=== PATIENT | female | born 1975 | race Caucasian/White ===

== ENCOUNTER 2018-04-13 02:46 | Observation (INO) | payer OTHER ==
[2018-04-13] MEDS ORDERED: Enoxaparin(*) 80 MG/0.8 ML SYR SUBCUT ONE (03:11)
[2018-04-13 04:03] LABS: ABS Basophils 0.1 10^3/ul (0-0.2); ABS Eosinophils 0.1 10^3/ul (0-0.6); ABS Lymphocytes 1.6 10^3/ul (1.0-4.8); ABS Monocytes 0.6 10^3/ul (0-0.8); ABS Neutrophils 7.1 10^3/ul (1.5-7.7); ABS Nucleated RBC 0 10^3/ul; Hematocrit 29 % (35-47); Hemoglobin 9.5 g/dl (12.0-16.0); Lymphocyte % 17.2 % (25-47); Mean Corpuscular HGB Conc 34 g/dl (31-36); Mean Corpuscular Hemoglobin 26 pg (27-31); Mean Corpuscular Volume 76 fL (80-97); Mean Platelet Volume 7.4 um3 (7.4-10.4); Nucleated Red Blood Cells % 0; Platelet Count 197 10^3/ul (150-450); Red Blood Count 3.74 10^6/ul (4.0-5.4); Red Cell Distribution Width 15 % (10.5-15); White Blood Count 9.5 10^3/ul (3.5-10.8)
[2018-04-13 04:19] LABS: EGFR Non-African American 111.2 (>60)
--- NOTE | 2018-04-13 04:19 | ED ---
Les Chiu Tariq, scribed for Sinan Sosa MD on 04/13/18 at 0317 . Lower Extremity - HPI Summary HPI Summary: Pt is a 43 y/o F BIBA from [facility] who presents to ED due to LLE DVT. Pt reports that [facility] found 2 DVTs with blood flow around them and transferred her to [facility] for further care. States that symptoms began as a sore on the left inner thigh since Wednesday (5 days ago). Denies any pain at this time. Negative PMHx DVT or PE. Pt is 20 weeks - A0. - History of Current Complaint Chief Complaint: EDExtremityLower Stated Complaint: DVT-TRANSFER FROM [facility] Time Seen by Provider: 04/13/18 02:56 Hx Obtained From: Patient Onset/Duration: Days - 5 days Severity Currently: None Pain Intensity: 0 Pain Scale Used: 0-10 Numeric Timing: Lasting Days Aggravating Factor(s): Nothing Alleviating Factor(s): Nothing - Allergies/Home Medications Allergies/Adverse Reactions: Allergies Allergy/AdvReac Type Severity Reaction Status Date / Time ciprofloxacin Allergy Rash And Verified 04/13/18 02:56 Itching Penicillins Allergy Rash And Verified 04/13/18 02:56 Itching Quinolones Allergy Rash And Verified 04/13/18 02:56 Itching Home Medications: Home Medications Calcium Carbonate [Super Calcium] 600 mg PO DAILY 04/13/18 [History Confirmed ] Dextromethorphan Polistirex [Cough Dm ER] 30 mg PO Q4HR PRN 04/13/18 [History Confirmed 04/13/18] Pnv No.95/Ferrous Fum/Folic AC [ Vitamin & Minera 28-0.8 mg] 1 tab PO DAILY 04/13/18 [History Confirmed 04/13/18] PMH/Surg Hx/FS Hx/Imm Hx Endocrine/Hematology History: Reports: Hx Diabetes Cardiovascular History: Reports: Hx Coronary Artery Disease Denies: Hx Deep Vein Thrombosis Respiratory History: Denies: Hx Pulmonary Embolism - Cancer History Hx Chemotherapy: Yes Hx Radiation Therapy: Yes - Surgical History Surgery Procedure, Year, and Place: 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, TONSILECTOMY,RECTAL POLIPS,3 , RECONSTRUCTION SURGERY BREAST Infectious Disease History: No Infectious Disease History: Denies: Traveled Outside the [place] in Last 30 Days - Family History Known Family History: Negative: Cardiac Disease, Diabetes - Social History Alcohol Use: None Substance Use Type: Reports: None Smoking Status (MU): Never Smoked Tobacco Review of Systems Positive: Other - 2 LLE DVTs Positive: Other - NEGATIVE: associated pain Positive: Other - Sore on the left inner thigh All Other Systems Reviewed And Are Negative: Yes Physical Exam - Summary Physical Exam Summary: VITAL SIGNS: Reviewed. GENERAL: Patient is a well-developed and nourished female who is lying comfortable in the stretcher. Patient is not in any acute respiratory distress. HEAD AND FACE: No signs of trauma. No ecchymosis, hematomas or skull depressions. No sinus tenderness. EYES: PERRLA, EOMI x 2, No injected conjunctiva, no nystagmus. EARS: Hearing grossly intact. Ear canals and tympanic membranes are within normal limits. MOUTH: Oropharynx within normal limits. NECK: Supple, trachea is midline, no adenopathy, no JVD, no carotid bruit, no c- spine tenderness, neck with full ROM. CHEST: Symmetric, no tenderness at palpation LUNGS: Clear to auscultation bilaterally. No wheezing or crackles. CVS: Regular rate and rhythm, S1 and S2 present, no murmurs or gallops appreciated. ABDOMEN: Soft, non-tender. No signs of distention. No rebound no guarding, and no masses palpated. Bowel sounds are normal. EXTREMITIES: FROM in all major joints, no edema, no cyanosis or clubbing. NEURO: Alert and oriented x 3. No acute neurological deficits. Speech is normal and follows commands. SKIN: Dry and warm. Small mild red area over the inner aspect of the left thigh , non-tender. Triage Information Reviewed: Yes Vital Signs On Initial Exam: Initial Vitals Pulse Resp BP Pulse Ox 85 29 152/96 96 04/13/18 02:51 04/13/18 02:51 04/13/18 02:51 04/13/18 02:51 Vital Signs Reviewed: Yes Diagnostics - Vital Signs Vital Signs Temp Pulse Resp BP Pulse Ox 04/13/18 03:00 84 29 97 04/13/18 02:54 98.4 F 96 18 172/99 98 04/13/18 02:51 85 29 152/96 96 - Laboratory Lab Statement: Any lab studies that have been ordered have been reviewed, and results considered in the medical decision making process. Lower Extremity Course/Dx - Course Assessment/Plan: A 43 year old, 20-week , female BIBA from [facility] presents to the ED due to 2 LLE DVTs that began sores on the left inner thigh 5 days ago without pain. Blood work was done. In the ED course, patient received Lovenox. We discussed patient care with Dr. Richie Enriquez and they recommended that the pt be accepted to medicine. Additionally, we discussed patient care with Dr. Crenshaw who accepts patient for admission. Patient will be admitted with a Dx of and DVT. She understands and agrees. - Diagnoses Provider Diagnoses: , DVT (deep venous thrombosis) - Physician Notifications Discussed Care Of Patient With: Richie Enriquez Time Discussed With Above Provider: 03:25 Instructed by Provider To: Other - Patient should be admitted to medicine. Discussed patient care with Dr. Crenshaw at 0329. Accepting the pt for admission. Discharge - Sign-Out/Discharge Documenting (check all that apply): Discharge/Admit/Transfer - Admit - Discharge Plan Condition: Stable Disposition: ADMITTED TO [facility] Referrals: Karen Cabrera CLINICAL PHARMACY COORDINATOR [Primary Care Provider] - The documentation as recorded by the Les lizama Tariq accurately reflects the service I personally performed and the decisions made by , Sinan Sosa MD.
[2018-04-13 04:21] LABS: INR 0.91 (0.77-1.02)
[2018-04-13] MEDS ORDERED: GuaiFENesin DM* 5 ML UDC PO PRN (04:48)
--- NOTE | 2018-04-13 09:51 | PN ---
Hospitalist Progress Note Date of Service: 04/13/18 Pt seen and evaluated. left non-occlusive DVT (common femoral and greater saphenous vein) in 44 yo female PMH breast cancer (in remission), maternal DVT hx, who is 20 weeks . Started on lovenox 1mg/kg q12 with Anti-XA level 4 hours after 3rd dose for titration to 0.6-1.0. Transfer to [address] [place] [address]. Await Ob- gyn physician recs. Will get EKG. Hemodynamically stable.
--- NOTE | 2018-04-13 12:04 | HP ---
ADMITTING HISTORY AND PHYSICAL: DATE OF ADMISSION: 04/13/18 CHIEF COMPLAINT: Left lower extremity redness and tenderness. HISTORY OF PRESENT ILLNESS/HOSPITAL COURSE: The patient is a 43-year-old lady with history of breast cancer at the age of 27, unknown stage, but likely stage I to II, status post lumpectomy with chemoradiotherapy and was placed on tamoxifen now, currently on remission, mentions that she is 20 weeks and had recently been seen by her OB back on Wednesday and mentioned that everything was "okay." However, the following day on Wednesday, her left lower extremity more specifically in the medial portion of her thighs, she felt that they became tender in addition to being painful and the tenderness usually exacerbates when she stands up a few hours prior to admission, then she began seen the red streaks on the medial thigh that appeared a little bit more prominent and more tender then its initial appearance. Given above, she presented to [facility] for appropriate diagnostic management and she was found to have DVT on the aforementioned extremity. I was initially called by Ms. Saranya Gale regarding the admission above and I have requested that she contact the OB therapist radiation directly given she is [address] Enriquez who is therapist radiation upon being informed by Ms. Gale suggested that she be transferred to [facility] for further evaluation and at which point, Dr. Lewis then touch based with Dr. Enriquez who has agreed with Lovenox as her anticoagulation. PAST MEDICAL/SURGICAL HISTORY: Breast cancer at the age of 27, status post chemoradiotherapy as well as tamoxifen therapy, currently on remission. No other history claimed by patient. Denies any previous history of hypertension, diabetes, etc. MEDICATIONS: Her current home medications are: 1. Escitalopram 10 mg p.o. daily. 2. Bupropion SR 1 tab p.o. daily. 3. Omeprazole 20 mg p.o. daily. ALLERGIES: To CIPROFLOXACIN, PENICILLIN, and QUINOLONES. FAMILY HISTORY: Her mother had multiple myeloma as well as DVT. Her father had hypercholesterolemia. SOCIAL HISTORY: She denied any previous history of smoking, illicit drug use, nor alcohol abuse. She is , currently with her 4th child and mentions that all her other 3 children are otherwise healthy. REVIEW OF SYSTEMS: The patient denied any recent headaches, dizziness, fevers, chills, nausea, vomiting, chest pain, shortness of breath, as mentioned she has had cough for one month, but this has not exacerbated nor improved since. Denies any abdominal pain, diarrhea, constipation, throat pain or new skin lesions. The rest of the 14-point review of systems were otherwise unremarkable. PHYSICAL EXAMINATION GENERAL APPEARANCE: The patient is awake, alert, and oriented x3, not in acute distress. VITAL SIGNS: Reveals the most recent vitals signs of records with blood pressure of 166/98 from previous of 142/85 and 135/84 previously. Heart rate of 94 beats per minute, respiratory rate of 33 from previous of 16 and 26, saturating at 97% on room air. HEENT: Normocephalic, atraumatic. PERRLA. Extraocular muscles intact. Negative for icterus. Moist oral mucosa. Negative throat erythema. NECK: Soft, supple with no cervical lymphadenopathy, no JVD. CHEST: Clear to auscultation bilaterally. Good air entry. No wheezes, rales, or rhonchi. HEART: S1, S2 within normal limits. Regular rate and rhythm. No murmurs, rubs , or gallops. ABDOMEN: Soft, slightly distended due to 20-week . I could not appreciate heart sounds myself and given the positioning of the fetus, but will defer with OB evaluation on consultation. Normoactive bowel sounds x4 quadrants. EXTREMITIES: No cyanosis, clubbing, or edema. PSYCHIATRIC: No active psychosis, depression, suicidal or homicidal ideations. SKIN: Warm to touch. DIAGNOSTIC STUDIES AND LABORATORY DATA: Laboratories and imaging from [place] has been reviewed. ASSESSMENT AND PLAN: As follows: 1. Deep vein thrombosis. Likely due to the fact that patient is , which makes her hypercoagulable. However, given her family history of deep vein thrombosis, more specifically with her mother, I believe that it is prudent at least rule out some hypercoagulable disorders that may not be affected by low molecular weight heparin. I will send out factor V Leiden, prothrombin gene mutation as well as protein C and S activity. I will defer with her primary care physician if they believe that sending out antiphospholipid antibody would be helpful as this is not part of our current CPOE regimen, although this can be part of her hypercoagulable workup, and as mentioned we will defer. We will place patient on 70 mg subcu of Lovenox q.12 and we will recheck anti-Xa level 4 hours after her third Lovenox dose and we will defer with OB in further titrating her anti-Xa level goal, which should be around 0.621 IU/mL and we will defer. 2. Cough. Previously diagnosed by PCP as an upper respiratory tract infection that this likely viral. Unclear whether this may be due to pulmonary embolus given known DVT, however, given there will be no change in management to further rule out PE along with the danger to her fetus, I will not elect to further study PE any further at this time given patient will be fully anticoagulated regardless. 3. Twenty weeks : Dr. Enriquez has been informed by both ER PA as well as our ER physician and we will place an official consult and we will await for any future input. Dr. Boogie advised Lovenox be given. Will defer with any further input upon evaluation. 4. DVT prophylaxis. The patient will be on full dose Lovenox as described. 5. Disposition as above. [id number]/[facility] #: [id number] [facility]
[2018-04-13] MEDS: Enoxaparin(*) 80 MG/0.8 ML SYR SUBCUT SCH (15:32)
[2018-04-13] MEDS: [UNRECOGNIZED DRUG - REMARK] PO SCH (15:36)
[2018-04-14] MEDS: Enoxaparin(*) 80 MG/0.8 ML SYR SUBCUT SCH (02:51)
[2018-04-14 07:12] LABS: Hematocrit 27 % (35-47); Hemoglobin 8.9 g/dl (12.0-16.0); Mean Corpuscular HGB Conc 33 g/dl (31-36); Mean Corpuscular Hemoglobin 25 pg (27-31); Mean Corpuscular Volume 76 fL (80-97); Mean Platelet Volume 7.2 um3 (7.4-10.4); Platelet Count 175 10^3/ul (150-450); Red Blood Count 3.51 10^6/ul (4.0-5.4); Red Cell Distribution Width 15 % (10.5-15); White Blood Count 7.2 10^3/ul (3.5-10.8)
[2018-04-14 07:21] VITALS: BP 130/78
[2018-04-14 07:37] LABS: EGFR Non-African American 109.1 (>60)
[2018-04-14] MEDS: [UNRECOGNIZED DRUG - REMARK] PO SCH (08:21)
[2018-04-15 18:25] LABS: Prothrombin 20210 Mutation Negative (Negative)
--- NOTE | 2018-04-15 21:35 | DS ---
DISCHARGE SUMMARY: DATE OF ADMISSION: 04/13/18 DATE OF DISCHARGE: 04/14/18 ADMITTING PROVIDER: Wong Crenshaw MD ATTENDING PHYSICIAN ON DISCHARGE: Colby Armijo MD PRIMARY CARE PHYSICIAN: Dr. Figueroa. CHIEF COMPLAINT: Left lower extremity tenderness and redness. PRINCIPAL DIAGNOSES: 1. Nonocclusive left lower extremity DVT. 2. 20 weeks . HISTORY OF PRESENT ILLNESS AND HOSPITAL COURSE: Tanja Woody is a 43-year-old female, past medical history of breast cancer at age 27, status post lumpectomy and chemotherapy and tamoxifen, currently in remission, who is 20 weeks . Four days prior to admission, she developed some tenderness to the medial portion of her left thigh, then progressive development of red streaks a few hours prior to admission. She presented to the [facility], was found to have nonocclusive DVT of the left lower extremity and was transferred to [facility]. Dr. Enriquez of [employer] was consulted via phone by the [facility] nursing staff as well. The patient was initially placed in the ICU, was started on Lovenox. She got 3 doses of 1 mg/kg Lovenox before anti-Xa level 4 hours after the third dose was obtained; however, this was a send-out lab and results are not available yet. The patient was hemodynamically stable throughout the admission. No tachycardia, hypoxia, or chest pain. She had reassuring heart tones on hospital day #2. Case was discussed with Dr. Beena Nova of Hematology/Oncology informally and the patient was considered safe for discharge with outpatient followup with Dr. Nova and her primary care provider. After discussions with Dr. Nova, who said she often uses once daily dose of Lovenox in this population, decision was made to use this 1.5 mg/kg at once daily dosing, starting day after discharge. The patient will follow up with Dr. Figueroa on 04/20/18 at [address] Beena Nova to be arranged. DISCHARGE MEDICATIONS: Include: 1. Lovenox 110 mg subcutaneous every 24 hours (new). 2. vitamins 1 tab p.o. daily. 3. Dextromethorphan cough suspension 30 mg p.o. q.4 hours p.r.n. 4. Calcium carbonate 600 mg p.o. daily. ACTIVITY LEVEL: No restrictions. DIET: No restrictions other than avoidance of alcohol and other obvious guidelines. TIME SPENT: On discharge, 35 minutes. [id number]/[facility] #: [id number] [facility]
== END 2018-04-14 11:30 | disposition home or self-care (01) ==
LOC: ED 02:46 → ICU 04:43 → INTOOBSV 04:43 → MED 10:44 → OBSVTOIN 04-14 09:00 → INTOOBSV 04-14 09:00
PROVIDERS: ADMIT Student in an Organized Health Care Education/Training Program; ATTEND Internal Medicine
DX: O22.32 Deep phlebothrombosis in pregnancy, second trimester (principal); Z3A.20 20 weeks gestation of pregnancy; Z85.3 Personal history of malignant neoplasm of breast; R05 Cough
CPT/HCPCS: 36415; 80048; 80053; 81240; 81241; 83735; 85025; 85027; 85303; 85306; 85520; 85610; 85730; 87641; 93005; 99285; A9270-GY; G0378; J1650

== ENCOUNTER 2018-08-22 07:45 | Inpatient (IN) | payer OTHER ==
[2018-08-24] MEDS ORDERED: Buffered Lidocaine 0.9% SYRIN* 5 ML/SYR SYRINGE ONE (07:29)
[2018-08-24] MEDS ORDERED: ceFOXitin 2 GM IVPREMIX* 2 GM/50 ML BAG IVPB ONE (07:43)
[2018-08-24] MEDS ORDERED: Sodium Citrate/Citric Acid* 15 ML UDC PO ONE (07:43)
[2018-08-24] MEDS ORDERED: Morphine PF AMP (0.5MG/ML)* 5 MG/10 ML AMP ONE (07:50)
[2018-08-24] MEDS ORDERED: Sodium Citrate/Citric Acid* 15 ML UDC ONE (07:50)
[2018-08-24] MEDS ORDERED: ceFOXitin 2 GM IVPREMIX* 2 GM/50 ML BAG ONE (07:52)
[2018-08-24] MEDS ORDERED: Phenylephrine INJ* 10 MG/ML 1 ML VIAL (10 MG) ONE (08:34)
[2018-08-24] MEDS ORDERED: EPHEDrine (Pressors)* 50 MG/ML VIAL ONE (09:23)
[2018-08-24] MEDS ORDERED: OXYTOCIN* 10 UNITS/ML 1 ML VIAL ONE (09:23)
[2018-08-24] MEDS ORDERED: DiMENhydriNATE IV* 50 MG/ML VIAL IV PUSH PRN (09:28)
[2018-08-24] MEDS ORDERED: Naloxone* 0.4 MG/ML 1 ML VIAL IV PRN ×2 (09:28→09:29)
[2018-08-24] MEDS ORDERED: diPHENhydraMINE IV* 50 MG/ML 1 ml VIAL (BENADRYL) IV PRN (09:29)
[2018-08-24] MEDS ORDERED: Ondansetron INJ* 2 MG/ML VIAL IV PRN (09:29)
[2018-08-24] MEDS ORDERED: Nalbuphine* 10 MG/ML 1 ML VIAL IV PRN (09:29)
[2018-08-24] MEDS ORDERED: Heparin VIAL(*) 5000 UNITS/ML VIAL (FIVE THOUSAND) ONE (09:37)
[2018-08-24] MEDS ORDERED: Zolpidem TAB* 5 MG PO PRN (09:48)
[2018-08-24] MEDS ORDERED: Witch Hazel PAD* JAR TOPICAL PRN (09:48)
[2018-08-24] MEDS ORDERED: oxyCODONE/Acetamin 5/325 MG* TAB PO PRN (09:48)
[2018-08-24] MEDS ORDERED: Glycerin ADULT SUPP PR PRN (09:48)
[2018-08-24] MEDS ORDERED: Dibucaine 1% 28.35 GM TUBE PR PRN (09:48)
[2018-08-24] MEDS ORDERED: Acetaminophen TAB* 325 MG PO PRN (09:48)
[2018-08-24] MEDS ORDERED: Oxytocin in LR* 20 UNITS/1,000 ML BAG IVPB SCH (10:00)
[2018-08-24] MEDS: Docusate CAP* 100 MG PO SCH ×2 (12:37→21:46)
[2018-08-24] MEDS: Simethicone TAB* 80 MG TAB.CHEW PO SCH ×3 (12:37→21:46)
[2018-08-24] MEDS: Ibuprofen TAB* 600 MG PO PRN ×2 (12:37→18:12)
[2018-08-24] MEDS: Heparin VIAL(*) 5000 UNITS/ML VIAL (FIVE THOUSAND) SUBCUT SCH ×2 (12:48→21:46)
[2018-08-25] MEDS: Ibuprofen TAB* 600 MG PO PRN ×4 (00:56→21:08)
[2018-08-25 07:33] LABS: ABS Basophils 0.1 10^3/ul (0-0.2); ABS Eosinophils 0 10^3/ul (0-0.6); ABS Lymphocytes 1.3 10^3/ul (1.0-4.8); ABS Monocytes 0.6 10^3/ul (0-0.8); ABS Neutrophils 8.1 10^3/ul (1.5-7.7); ABS Nucleated RBC 0 10^3/ul; Eosinophil % 0.2 % (0-6); Hematocrit 26 % (35-47); Hemoglobin 8.7 g/dl (12.0-16.0); Lymphocyte % 12.6 % (25-47); Mean Corpuscular HGB Conc 33 g/dl (31-36); Mean Corpuscular Hemoglobin 25 pg (27-31); Mean Corpuscular Volume 75 fL (80-97); Mean Platelet Volume 7.8 um3 (7.4-10.4); Nucleated Red Blood Cells % 0; Platelet Count 149 10^3/ul (150-450); Red Blood Count 3.49 10^6/ul (4.00-5.40); Red Cell Distribution Width 18 % (10.5-15); White Blood Count 10.1 10^3/ul (3.5-10.8)
[2018-08-25] MEDS: Simethicone TAB* 80 MG TAB.CHEW PO SCH ×4 (08:38→21:05)
[2018-08-25] MEDS: Docusate CAP* 100 MG PO SCH ×3 (08:38→21:05)
[2018-08-25] MEDS: Ferrous Gluconate TAB* 324 MG TAB PO SCH ×2 (08:38→21:05)
[2018-08-25] MEDS: Heparin VIAL(*) 5000 UNITS/ML VIAL (FIVE THOUSAND) SUBCUT SCH (10:37)
[2018-08-25] MEDS: oxyCODONE/Acetamin 5/325 MG* TAB PO PRN ×2 (12:40→21:03)
[2018-08-25] MEDS ORDERED: Enoxaparin(*) 150 MG/ML 1 ML SYRINGE SUBCUT SCH (18:00)
[2018-08-25] MEDS ORDERED: Enoxaparin(*) 100 MG/ML SYR SUBCUT SCH (21:00)
[2018-08-25] MEDS: Enoxaparin(*) 150 MG/ML 1 ML SYRINGE SUBCUT SCH (21:06)
[2018-08-26] MEDS: oxyCODONE/Acetamin 5/325 MG* TAB PO PRN ×6 (01:06→23:38)
[2018-08-26] MEDS: Ibuprofen TAB* 600 MG PO PRN ×4 (03:50→23:38)
[2018-08-26] MEDS: Simethicone TAB* 80 MG TAB.CHEW PO SCH ×4 (09:18→20:05)
[2018-08-26] MEDS: Ferrous Gluconate TAB* 324 MG TAB PO SCH ×2 (09:18→20:05)
[2018-08-26] MEDS: Docusate CAP* 100 MG PO SCH ×3 (09:18→20:05)
[2018-08-26 10:46] LABS: Hematocrit 27 % (35-47); Hemoglobin 8.6 g/dl (12.0-16.0); Mean Corpuscular HGB Conc 32 g/dl (31-36); Mean Corpuscular Hemoglobin 24 pg (27-31); Mean Corpuscular Volume 75 fL (80-97); Mean Platelet Volume 7.6 um3 (7.4-10.4); Platelet Count 187 10^3/ul (150-450); Red Cell Distribution Width 18 % (10.5-15); White Blood Count 12.8 10^3/ul (3.5-10.8)
[2018-08-26 11:04] LABS: EGFR Non-African American 71.1 (>60)
[2018-08-26] MEDS: Labetalol TAB* 100 MG PO SCH (15:03)
[2018-08-26] MEDS ORDERED: Measles, Mumps,Rubella VACC* 0.5 ML/VIAL SUBCUT ONE (17:42)
[2018-08-26] MEDS ORDERED: NIFEdipine CAP* 10 MG PO ONE (17:42)
[2018-08-26] MEDS: NIFEdipine CAP* 10 MG PO ONE ×2 (19:17→20:49)
[2018-08-26] MEDS: Enoxaparin(*) 150 MG/ML 1 ML SYRINGE SUBCUT SCH (20:03)
[2018-08-27] MEDS: oxyCODONE/Acetamin 5/325 MG* TAB PO PRN ×4 (03:53→20:51)
[2018-08-27] MEDS: Ibuprofen TAB* 600 MG PO PRN ×2 (05:45→11:24)
[2018-08-27] MEDS: Labetalol TAB* 100 MG PO SCH ×3 (08:49→19:49)
[2018-08-27] MEDS: Ferrous Gluconate TAB* 324 MG TAB PO SCH ×2 (08:49→20:51)
[2018-08-27] MEDS: Simethicone TAB* 80 MG TAB.CHEW PO SCH ×4 (08:49→20:50)
[2018-08-27] MEDS: Docusate CAP* 100 MG PO SCH ×3 (08:49→20:50)
[2018-08-27] MEDS: Enoxaparin(*) 150 MG/ML 1 ML SYRINGE SUBCUT SCH (20:53)
[2018-08-27] MEDS ORDERED: Labetalol TAB* 100 MG PO ONE (21:00)
[2018-08-28] MEDS: oxyCODONE/Acetamin 5/325 MG* TAB PO PRN ×7 (01:32→21:42)
[2018-08-28] MEDS ORDERED: Labetalol TAB* 200 MG PO SCH (09:00)
[2018-08-28] MEDS: Simethicone TAB* 80 MG TAB.CHEW PO SCH ×4 (09:01→20:53)
[2018-08-28] MEDS: Docusate CAP* 100 MG PO SCH ×3 (09:01→20:53)
[2018-08-28] MEDS: Ferrous Gluconate TAB* 324 MG TAB PO SCH ×2 (09:01→20:53)
--- NOTE | 2018-08-28 09:19 | PN ---
Progress Note - Progress Note Date of Service: 08/28/18 SOAP: Subjective: [Patient is a 43 y/o post repeat section on 08/24/18. Her care has been complicated by Hypertension with systolic readings in 170's and diastolic readings in 100's. She was started on Labetolol 100mg BID and I have increased her dose to 200mg BID. Her last BP at 1945 yesterday systolic was 170 's since then Her BP have ranged in 150-160's systolic to 80-90's diastolic on 200mg labetolol BID. the patient denies chest pain, shortness of breath, N/V/D , no visual changes or headaches.] Objective: Vital Signs - 12 hr Temp Pulse Resp BP Pulse Ox 08/28/18 08:34 99.2 F 80 18 151/76 98 08/28/18 05:43 16 08/28/18 04:18 17 08/28/18 04:17 17 08/28/18 04:13 152/86 08/28/18 04:01 98.5 F 86 20 159/94 98 08/28/18 01:50 18 08/28/18 01:49 16 08/28/18 01:32 17 08/27/18 23:54 98.3 F 91 17 162/89 08/27/18 21:08 76 166/87 Laboratory Tests 08/24/18 08/25/18 08/26/18 08:02 07:24 10:36 WBC 10.1 12.8 H RBC 3.49 L 3.60 L Hgb 8.7 L 8.6 L Hct 26 L 27 L MCV 75 L 75 L MCH 25 L 24 L MCHC 33 32 RDW 18 H 18 H Plt Count 149 L 187 MPV 7.8 7.6 Neut % (Auto) 79.8 Lymph % (Auto) 12.6 L Loving % (Auto) 6.3 Eos % (Auto) 0.2 Baso % (Auto) 1.1 Absolute Neuts (auto) 8.1 H Absolute Lymphs (auto) 1.3 Absolute Monos (auto) 0.6 Absolute Eos (auto) 0 Absolute Basos (auto) 0.1 Absolute Nucleated RBC 0 Nucleated RBC % 0 APTT 35.5 Sodium Potassium Chloride Carbon Dioxide Anion Gap BUN Creatinine Est GFR ( Amer) Est GFR (Non-Af Amer) BUN/Creatinine Ratio Glucose Calcium Total Bilirubin AST ALT Alkaline Phosphatase Total Protein Albumin Globulin Albumin/Globulin Ratio 08/26/18 10:36 WBC RBC Hgb Hct MCV MCH MCHC RDW Plt Count MPV Neut % (Auto) Lymph % (Auto) Loving % (Auto) Eos % (Auto) Baso % (Auto) Absolute Neuts (auto) Absolute Lymphs (auto) Absolute Monos (auto) Absolute Eos (auto) Absolute Basos (auto) Absolute Nucleated RBC Nucleated RBC % APTT Sodium 135 Potassium 3.9 Chloride 104 Carbon Dioxide 23 Anion Gap 8 BUN 9 Creatinine 0.87 Est GFR ( Amer) 86.0 Est GFR (Non-Af Amer) 71.1 BUN/Creatinine Ratio 10.3 Glucose 110 H Calcium 8.7 Total Bilirubin 0.40 AST 15 ALT 9 Alkaline Phosphatase 96 Total Protein 6.3 L Albumin 3.2 Globulin 3.1 Albumin/Globulin Ratio 1.0 Lungs CTA b/l CV RRR Abdomen, Soft, NT, ND, NABS, incision is clean, dry intact, with no erythema or induration. No CVA tenderness b/l LE no pedal edema, reflexes 1to +2 bl [] Assessment: [POD #4 s/p section with puerperal hypertension on antihypertensives.] Plan: [I reviewed with the patient her clinical s/sx, possible etiology, pathophysiology, morbidity, risks of puerperal hypertension, including, not limited to Preeclampsia, eclamptic seizures, stroke etc if not well controlled. The patient is aware of recommendations of controlling HTN to a range of <160/ 100 for at least 24hrs prior to discharge. Plan- increase labetolol to 200mg TID, continue current monitoring, check metabolic panel to assess renal function and liver function studies along with CBC.]
[2018-08-28] MEDS: Labetalol TAB* 200 MG PO SCH ×2 (13:55→20:53)
[2018-08-28 16:18] LABS: ABS Basophils 0 10^3/ul (0-0.2); ABS Eosinophils 0.1 10^3/ul (0-0.6); ABS Lymphocytes 0.7 10^3/ul (1.0-4.8); ABS Monocytes 0.4 10^3/ul (0-0.8); ABS Neutrophils 7.3 10^3/ul (1.5-7.7); ABS Nucleated RBC 0 10^3/ul; Eosinophil % 1.1 % (0-6); Hematocrit 26 % (35-47); Hemoglobin 8.4 g/dl (12.0-16.0); Lymphocyte % 8.2 % (25-47); Mean Corpuscular HGB Conc 32 g/dl (31-36); Mean Corpuscular Hemoglobin 25 pg (27-31); Mean Corpuscular Volume 76 fL (80-97); Mean Platelet Volume 6.8 um3 (7.4-10.4); Nucleated Red Blood Cells % 0; Platelet Count 209 10^3/ul (150-450); Red Cell Distribution Width 18 % (10.5-15); White Blood Count 8.5 10^3/ul (3.5-10.8)
[2018-08-28 16:37] LABS: EGFR Non-African American 81.8 (>60)
[2018-08-28] MEDS: Enoxaparin(*) 150 MG/ML 1 ML SYRINGE SUBCUT SCH (20:53)
[2018-08-29] MEDS: oxyCODONE/Acetamin 5/325 MG* TAB PO PRN ×2 (01:44→06:21)
[2018-08-29 08:13] VITALS: BP 143/88
[2018-08-29] MEDS: Docusate CAP* 100 MG PO SCH (08:39)
[2018-08-29] MEDS: Simethicone TAB* 80 MG TAB.CHEW PO SCH (08:39)
[2018-08-29] MEDS: Ferrous Gluconate TAB* 324 MG TAB PO SCH (08:40)
[2018-08-29] MEDS: Labetalol TAB* 200 MG PO SCH (08:40)
--- NOTE | 2018-08-31 12:45 | OP ---
DATE OF OPERATION: 08/24/18 - ROOM #116 DATE OF : 75 SURGEON: Elliott Duncan MD INTERNET ASSESSOR : Richie Enriquez MD ANESTHESIA: Spinal. PRE-OP DIAGNOSIS: Previous section. POST-OP DIAGNOSIS: Previous section. OPERATIVE PROCEDURE: Low transverse section. COMPLICATIONS: None. FINDINGS: This is a 43-year-old with three prior sections who desired elective repeat section. At the time of , she had a viable male. Apgars were 9 and 10, weight was 6 pounds 11 ounces. Normal appearing uterus, fallopian tubes and ovaries. DESCRIPTION OF PROCEDURE: The patient identified, procedure identified as a low transverse section. The patient was taken to the operating room, prepped and draped in the usual fashion in the left lateral recumbent position under spinal anesthesia. A Pfannenstiel incision was made through the old incision, carried down through fat, fascia and peritoneum. A transverse incision was made in the lower uterine segment, extended laterally using bandage scissors. The was delivered through the incision initially with ease and then the vacuum was applied and was brought out through the incision with ease. Cord was doubly clamped and cut. The was handed to the awaiting glove machine operator. Cord blood was obtained. Placenta delivered spontaneously. The uterus was wiped out with a wet lap sponge. The uterine incision was then closed using 0 Polysorb in a running fashion. A second layer was used to imbricate the first layer. Hemostasis was verified. Uterus was placed back in the abdominal cavity. The peritoneum was then closed using 3-0 Polysorb in a running fashion. Good hemostasis was achieved in the subrectus layers. The fascia was closed using 0 Polysorb in a running fashion. Good hemostasis in the subcu, and skin was closed with 4-0 Monocryl in a subcuticular fashion. Steri-Strips were applied and the patient returned to recovery room in stable condition. All sponge and instrument counts were correct. [id number]/[facility] #: [id number] [facility]
== END 2018-08-29 11:26 | disposition home or self-care (01) | DRG 540 ==
LOC: MCHOB 08-24 06:04
PROVIDERS: ADMIT Obstetrics & Gynecology; ATTEND Obstetrics & Gynecology
PROC: 10D00Z1 Extraction of Products of Conception, Low, Open Approach (ICD-10-PCS; principal; 2018-08-24 07:45)
DX: O34.211 Maternal care for low transverse scar from previous cesarean delivery (principal); O99.824 Streptococcus B carrier state complicating childbirth; O16.5 Unspecified maternal hypertension, complicating the puerperium; O90.81 Anemia of the puerperium; D64.9 Anemia, unspecified; Z3A.39 39 weeks gestation of pregnancy; Z37.0 Single live birth
CPT/HCPCS: 36415; 80053; 85025; 85027; 85730; 90707; A9270-GY; J0694; J1644; J1650; J2590

== ENCOUNTER → 2018-11-19 00:15 | Emergency (ER) | payer OTHER ==
[~2018-11-19 00:15] MED LIST: Labetalol TAB* 200 MG ONE; Labetalol TAB* 200 MG PO ONE
[2018-11-19 00:59] VITALS: BP 176/108
--- NOTE | 2018-11-19 12:47 | ED ---
Hypertension - HPI Summary HPI Summary: A 43 y/o female accompanied by family presents to the ED c/o HBP. In the ED room , the patient has a pulse of 101 BPM, O2 saturation of 99%, and blood pressure of 176/108. As per triage, "Pt c/o elevated bp since giving in August. Hasn't had bp medications". According to the patient, she has been out of her HBP prescription from Dr. Huynh for the past month, however, she tried calling his office and had her pharmacist call his office, but was not able to get ahold of him. She was able to get ahold of his office today. She stated that she has no symptoms whatsoever except a headache on Wednesday, but she was just concerned about her HBP. She emphasized she has no current symptoms. She denies any weakness, numbness, or headache. Patient is about 3 months post- . - History of Current Complaint Chief Complaint: EDHypertension Stated Complaint: POSS HIGH BLOOD PRESSURE Hx Obtained From: Patient Onset/Duration: Started Weeks Ago, Still Present Timing: Constant Aggravating Factor(s): Nothing Alleviating Factor(s): Nothing Associated Signs & Symptoms: Negative - Allergies/Home Medications Allergies/Adverse Reactions: Allergies Allergy/AdvReac Type Severity Reaction Status Date / Time ciprofloxacin Allergy Unknown Verified 11/19/18 00:22 Reaction Details Penicillins Allergy Rash And Verified 11/19/18 00:22 Itching Quinolones Allergy Unknown Verified 11/19/18 00:22 Reaction Details PMH/Surg Hx/FS Hx/Imm Hx Endocrine/Hematology History: Reports: Hx Diabetes - borderline GDM /c previous Cardiovascular History: Reports: Hx Coronary Artery Disease Denies: Hx Deep Vein Thrombosis Comment Only: Other Cardiovascular Problems/Disorders - current admit for left leg dvts Respiratory History: Denies: Hx Pulmonary Embolism Sensory History: Denies: Hx Contacts or Glasses, Hx Hearing Aid Opthamlomology History: Denies: Hx Contacts or Glasses - Cancer History Cancer Type, Location and Year: 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 Hx Chemotherapy: Yes Hx Radiation Therapy: Yes - Surgical History Surgery Procedure, Year, and Place: 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, TONSILECTOMY,RECTAL POLIPS,3 , RECONSTRUCTION SURGERY BREAST Infectious Disease History: No Infectious Disease History: Denies: Traveled Outside the [place] in Last 30 Days - Family History Known Family History: Negative: Cardiac Disease, Diabetes - Social History Alcohol Use: None Substance Use Type: Reports: None Smoking Status (MU): Never Smoked Tobacco Have You Smoked in the Last Year: No Review of Systems Negative: Fever Positive: Other - POSITIVE: HTN Negative: Headache, Weakness, Numbness All Other Systems Reviewed And Are Negative: Yes Physical Exam - Summary Physical Exam Summary: VITAL SIGNS: Reviewed. GENERAL: Patient is a well-developed and nourished female who is lying comfortable in the stretcher. Patient is not in any acute respiratory distress. HEAD AND FACE: No signs of trauma. No ecchymosis, hematomas or skull depressions. No sinus tenderness. EYES: PERRLA, EOMI x 2, No injected conjunctiva, no nystagmus. EARS: Hearing grossly intact. Ear canals and tympanic membranes are within normal limits. MOUTH: Oropharynx within normal limits. NECK: Supple, trachea is midline, no adenopathy, no JVD, no carotid bruit, no c- spine tenderness, neck with full ROM. CHEST: Symmetric, no tenderness at palpation LUNGS: Clear to auscultation bilaterally. No wheezing or crackles. CVS: Regular rate and rhythm, S1 and S2 present, no murmurs or gallops appreciated. ABDOMEN: Soft, non-tender. No signs of distention. No rebound no guarding, and no masses palpated. Bowel sounds are normal. EXTREMITIES: FROM in all major joints, no edema, no cyanosis or clubbing. NEURO: Alert and oriented x 3. No acute neurological deficits. Speech is normal and follows commands. SKIN: Dry and warm Triage Information Reviewed: Yes Vital Signs On Initial Exam: Initial Vitals Temp Pulse Resp BP Pulse Ox 97.7 F 94 16 192/120 99 11/19/18 00:18 11/19/18 00:18 11/19/18 00:18 11/19/18 00:18 11/19/18 00:18 Vital Signs Reviewed: Yes Diagnostics - Vital Signs Vital Signs Temp Pulse Resp BP Pulse Ox 11/19/18 00:18 97.7 F 94 16 192/120 99 - Laboratory Lab Statement: Any lab studies that have been ordered have been reviewed, and results considered in the medical decision making process. Hypertension Course/Dx - Course Course Of Treatment: A 43 y/o female accompanied by family presents to the ED c/ o HBP. In the ED room, the patient has a pulse of 101 BPM, O2 saturation of 99% , and blood pressure of 176/108. Physical examination was unremarkable. No laboratory scans were done. No laboratory screens were done. In the ED course, the patient received Labetalol. Patient will be discharged with a diagnosis of HBP. Patient is to follow up with primary care provider in 1-2 days. Patient is to return to ED for any new or worsening symptoms. Patient is agreeable with this plan. - Diagnoses Provider Diagnoses: HBP (high blood pressure) Discharge - Sign-Out/Discharge Documenting (check all that apply): Patient Departure - DISCHARGE - Discharge Plan Condition: Stable Disposition: HOME Prescriptions: Labetalol TAB* [Trandate TAB*] 200 mg PO BID #60 tab Referrals: Tani Figueroa MD [Primary Care Provider] - 2 Days Additional Instructions: FOLLOW UP WITH PRIMARY CARE PROVIDER IN 1-2 DAYS. RETURN TO ED FOR ANY NEW OR WORSENING SYMPTOMS. - Attestation Statements Document Initiated by Scribe: Yes Documenting Scribe: Nikolai Saldana Provider For Whom Nicholeibe is Documenting (Include Credential): Sinan Sosa MD Scribe Attestation: Nikolai Chiu scribed for Sinan Sosa MD on 11/19/18 at 0112. Status of Scribe Document: Ready
== END | disposition home or self-care (01) ==
LOC: ED 00:15
DX: R03.0 Elevated blood-pressure reading, without diagnosis of hypertension (principal); Z88.1 Allergy status to other antibiotic agents; Z88.0 Allergy status to penicillin
CPT/HCPCS: 99281; A9270-GY